=== PATIENT | female | born 1985 | race Caucasian/White ===

== ENCOUNTER 2018-07-12 17:02 | Emergency (ER) | payer OTHER ==
[~2018-07-12] VITALS: Ht 157.5 cm; Wt 70.3 kg
[2018-07-12 17:13] VITALS: BP_SYST 133
--- NOTE | 2018-07-12 17:23 | NUR ---
Patient to ER bed 6 to gown for evaluation. Side rails up. Report given to Jozef BAPTISTE.
--- NOTE | 2018-07-12 17:32 | NUR ---
Patient is awake, alert, and oriented x4. Patient reports that she had right calf pain since Wednesday. Follow up MD appointment found DVT. History of right ACL tear with repair last Wednesday.
--- NOTE | 2018-07-12 17:34 | NUR ---
ER at bedside examining patient.
[2018-07-12] MEDS ORDERED: ENOXAPARIN SODIUM 80 MG/0.8 ML SYRINGE SUBCUT ONE (17:45)
--- NOTE | 2018-07-12 18:00 | NUR ---
Patient given written and verbal discharge instructions and verbalizes understanding. ER MD discussed with patient the results and treatment provided. Patient in stable condition. ID arm band removed. Rx of lovenox given. Patient educated on pain management and to follow up with PMD. Pain Scale 0/10. Opportunity for questions provided and answered. Medication side effect fact sheet provided.
[2018-07-12 18:01] VITALS: BP_SYST 133
== END 2018-07-12 18:00 | disposition home or self-care (01) ==
LOC: SED 17:02
DX: I82.4Z1 Acute embolism and thrombosis of unspecified deep veins of right distal lower extremity (principal); F41.9 Anxiety disorder, unspecified; R03.0 Elevated blood-pressure reading, without diagnosis of hypertension
CPT/HCPCS: 96372; 99283; J1650